=== PATIENT | male | born 1945 | race Native Hawaiian/Other Pacific Islander ===

== ENCOUNTER 2016-06-16 11:36 | Observation (INO) | payer OTHER ==
[~2016-06-16] VITALS: Ht 175.3 cm; Wt 66.9 kg
[2016-06-16 12:29] VITALS: BP 152/93; TEMP 98; Ht 175.3 cm; Wt 66.9 kg
[2016-06-16] MEDS ORDERED: FORTAMET1000 MG PO (12:43)
[2016-06-16] MEDS ORDERED: GLIM4TAB PO (12:44)
[2016-06-16] MEDS ORDERED: METO50TA27 PO (12:45)
[2016-06-16 13:46] LABS: POTASSIUM 3.3 mmol/L (3.6-5.2); SODIUM 132 mmol/L (136-145)
[2016-06-16 13:57] LABS: PLATELET COUNT 228 K/uL (142-355)
[2016-06-16 16:00] VITALS: BP 161/84; TEMP 97.7
[2016-06-16 20:00] VITALS: BP 169/88; TEMP 98.2
[2016-06-17 00:06] VITALS: BP 146/99; TEMP 98.1
[2016-06-17 05:00] VITALS: BP 166/96; TEMP 98.4
[2016-06-17 05:18] LABS: PLATELET COUNT 222 K/uL (142-355)
[2016-06-17 05:41] LABS: POTASSIUM 3.6 mmol/L (3.6-5.2); SODIUM 138 mmol/L (136-145)
[2016-06-17 12:00] VITALS: BP 149/85; TEMP 98
[2016-06-17 16:00] VITALS: BP 154/76; TEMP 98.1
[2016-06-17 20:00] VITALS: BP 170/88; TEMP 97.9
[2016-06-18] VITALS: BP 141/66; TEMP 98
[2016-06-18 04:00] VITALS: BP 179/96; TEMP 97.7
[2016-06-18 05:22] LABS: PLATELET COUNT 226 K/uL (142-355)
[2016-06-18 05:41] LABS: POTASSIUM 3.8 mmol/L (3.6-5.2); SODIUM 132 mmol/L (136-145)
[2016-06-18 08:00] VITALS: BP 164/89; TEMP 97.8
== END 2016-06-18 16:30 | disposition home or self-care (01) ==
LOC: MED/SURG 11:36
PROVIDERS: Emergency Medicine; ADMIT Nurse Practitioner
DX: E86.0 Dehydration (principal); R00.0 Tachycardia, unspecified; R53.1 Weakness; E11.9 Type 2 diabetes mellitus without complications; K59.09 Other constipation; E83.42 Hypomagnesemia
CPT/HCPCS: 36415; 80053; 82150; 82550; 82948; 83690; 83735; 84484; 85027; 87040; 87804; 93005; 96365; 96366; 96367; 96372; 96374; 96375; 99220; G0378; G0379; J1815; J3475; J3490; Q9963

== ENCOUNTER 2016-06-23 12:24 | Outpatient (CLI) | payer OTHER ==
[~2016-06-23 12:24] MED LIST: FORTAMET1000 MG PO; GLIM4TAB PO; METO50TA27 PO
== END 2016-06-23 21:05 | disposition home or self-care (01) ==
LOC: US 12:24
DX: R42 Dizziness and giddiness (principal)

== ENCOUNTER 2018-02-15 10:54 | Emergency (ER) | payer OTHER ==
[~2018-02-15] VITALS: Ht 175.3 cm; Wt 72.6 kg
[2018-02-15 13:38] VITALS: BP 138/84; TEMP 98
== END 2018-02-15 13:38 | disposition home or self-care (01) ==
LOC: ED 10:54
DX: S90.31XA Contusion of right foot, initial encounter (principal); V09.09XA Pedestrian injured in nontraffic accident involving other motor vehicles, initial encounter; Y92.89 Other specified places as the place of occurrence of the external cause
CPT/HCPCS: 96372; 99283; J1885

== ENCOUNTER 2018-06-25 11:22 | Outpatient (CLI) | payer OTHER | END 2018-06-25 20:32 | disposition home or self-care (01) | LOC: RAD 11:22 | DX: R05 Cough (principal) ==

== ENCOUNTER 2019-05-05 11:00 | Emergency (ER) | payer OTHER ==
[~2019-05-05] VITALS: Ht 175.3 cm; Wt 79.8 kg
[2019-05-05 11:09] VITALS: TEMP 98.1
[2019-05-05 11:40] VITALS: BP 156/88
== END 2019-05-05 11:41 | disposition home or self-care (01) ==
LOC: ED 11:00
DX: S16.1XXA Strain of muscle, fascia and tendon at neck level, initial encounter (principal); M47.812 Spondylosis without myelopathy or radiculopathy, cervical region
CPT/HCPCS: 96372; 99283; J1885; J2360

== ENCOUNTER 2019-10-05 14:23 | Emergency (ER) | payer OTHER ==
[~2019-10-05] VITALS: Ht 175.3 cm; Wt 75.8 kg
[2019-10-05 15:06] LABS: PLATELET COUNT 180 K/uL (142-355)
[2019-10-05 15:31] LABS: POTASSIUM 4.5 mmol/L (3.6-5.2)
[2019-10-05 15:59] VITALS: BP 124/75; TEMP 98
== END 2019-10-05 16:00 | disposition home or self-care (01) ==
LOC: ED 14:23
PROVIDERS: Emergency Medicine Emergency Medical Services
DX: R11.10 Vomiting, unspecified (principal); R42 Dizziness and giddiness; M79.10 Myalgia, unspecified site; M54.89 Other dorsalgia; R51 Headache
CPT/HCPCS: 80053; 81000; 82550; 83690; 85027; 96360; 96375; 99284; J2405

== ENCOUNTER 2019-10-07 18:44 | Emergency (ER) | payer OTHER ==
[~2019-10-07] VITALS: Ht 175.3 cm; Wt 75.8 kg
[2019-10-07 19:01] VITALS: BP 112/64; TEMP 98.7
== END 2019-10-07 20:24 | disposition home or self-care (01) ==
LOC: ED 18:44
DX: Z53.21 Procedure and treatment not carried out due to patient leaving prior to being seen by health care provider (principal)
CPT/HCPCS: 99281

== ENCOUNTER 2020-03-25 11:30 | Outpatient (CLI) | payer OTHER | END 2020-03-25 19:57 | disposition home or self-care (01) | LOC: RAD 11:30 | PROVIDERS: ATTEND Nurse Practitioner | DX: Z01.818 Encounter for other preprocedural examination (principal) ==

== ENCOUNTER 2021-03-13 12:49 | Emergency (ER) | payer OTHER ==
[~2021-03-13] VITALS: Ht 175.3 cm; Wt 73.5 kg
[2021-03-13 13:47] LABS: PLATELET COUNT 297 K/uL (142-355)
[2021-03-13 13:52] LABS: POTASSIUM 3.9 mmol/L (3.6-5.2)
[2021-03-13 16:29] VITALS: BP 140/63; TEMP 97.3
== END 2021-03-13 16:24 | disposition home or self-care (01) ==
LOC: ED 12:52
PROVIDERS: Family Medicine
DX: R07.89 Other chest pain (principal); R10.13 Epigastric pain; J32.8 Other chronic sinusitis; R51.9 Headache, unspecified; W18.39XA Other fall on same level, initial encounter; Y92.098 Other place in other non-institutional residence as the place of occurrence of the external cause
CPT/HCPCS: 36415; 80053; 81000; 82150; 82550; 83690; 84484; 85007; 85027; 85379; 85610; 85730; 93005; 96374; 99284; J2405

== ENCOUNTER 2021-05-10 16:15 | Outpatient (CLI) | payer OTHER ==
[2021-05-10 17:08] LABS: POTASSIUM 4.1 mmol/L (3.6-5.2)
== END 2021-05-10 19:06 | disposition home or self-care (01) ==
LOC: LABW 16:15
PROVIDERS: ATTEND Family Medicine
DX: E11.9 Type 2 diabetes mellitus without complications (principal)
CPT/HCPCS: 36415; 80053; 83036

== ENCOUNTER 2021-05-31 13:04 | Emergency (ER) | payer OTHER ==
[~2021-05-31] VITALS: Ht 175.3 cm; Wt 77.1 kg
[2021-05-31 13:10] VITALS: BP 137/93; TEMP 97.6
[2021-05-31 14:23] LABS: PLATELET COUNT 279 K/uL (142-355)
[2021-05-31 14:29] LABS: POTASSIUM 4.1 mmol/L (3.6-5.2)
[2021-05-31 14:48] LABS: PARTIAL THROMBOPLASTIN TIME 26.5 SECONDS (24.5-33.6)
== END 2021-05-31 14:14 | disposition still patient (30) ==
LOC: ED 13:04
PROVIDERS: Hospitalist
DX: F41.1 Generalized anxiety disorder (principal); F41.0 Panic disorder [episodic paroxysmal anxiety]; E11.9 Type 2 diabetes mellitus without complications; Z79.84 Long term (current) use of oral hypoglycemic drugs; Z51.81 Encounter for therapeutic drug level monitoring
CPT/HCPCS: 80053; 80307; 80320; 81000; 82550; 83880; 84484; 85027; 85610; 85730; 93005; 99283

== ENCOUNTER 2022-02-27 14:27 | Emergency (ER) | payer OTHER ==
[~2022-02-27] VITALS: Ht 175.3 cm; Wt 77.1 kg
[2022-02-27 14:35] VITALS: BP 121/94; TEMP 98
== END 2022-02-27 14:49 | disposition home or self-care (01) ==
LOC: ED 14:27
DX: Z53.21 Procedure and treatment not carried out due to patient leaving prior to being seen by health care provider (principal)
CPT/HCPCS: 99281

== ENCOUNTER 2022-05-01 14:43 | Emergency (ER) | payer OTHER ==
[~2022-05-01] VITALS: Ht 175.3 cm; Wt 74.8 kg
[2022-05-01 14:50] VITALS: BP 124/94; TEMP 97.4
== END 2022-05-01 15:07 | disposition home or self-care (01) ==
LOC: ED 14:43
DX: J33.9 Nasal polyp, unspecified (principal); J32.8 Other chronic sinusitis
CPT/HCPCS: 99282

== ENCOUNTER 2022-05-21 14:35 | Emergency (ER) | payer OTHER ==
[~2022-05-21] VITALS: Ht 175.3 cm; Wt 74.8 kg
[2022-05-21 15:30] LABS: PLATELET COUNT 328 K/uL (142-355)
[2022-05-21 15:31] LABS: POTASSIUM 3.7 mmol/L (3.6-5.2)
[2022-05-21 15:45] LABS: PARTIAL THROMBOPLASTIN TIME 25.9 SECONDS (24.5-33.6)
[2022-05-21 17:30] VITALS: BP 117/62; TEMP 98.2
== END 2022-05-21 17:30 | disposition left against medical advice (07) ==
LOC: ED 14:35
PROVIDERS: Family Medicine
DX: R07.89 Other chest pain (principal); I47.1 Supraventricular tachycardia; E11.9 Type 2 diabetes mellitus without complications; N18.9 Chronic kidney disease, unspecified; R06.09 Other forms of dyspnea; Z53.29 Procedure and treatment not carried out because of patient's decision for other reasons; W01.0XXA Fall on same level from slipping, tripping and stumbling without subsequent striking against object, initial encounter; Y92.098 Other place in other non-institutional residence as the place of occurrence of the external cause
CPT/HCPCS: 36415; 80053; 82550; 84484; 85027; 85379; 85610; 85730; 93005; 96365; 96366; 96375; 99285; J3490

== ENCOUNTER 2022-06-06 09:31 | Emergency (ER) | payer OTHER ==
[~2022-06-06] VITALS: Ht 175.3 cm; Wt 72.6 kg
[2022-06-06 09:55] VITALS: TEMP 97
[2022-06-06 10:00] LABS: PLATELET COUNT 484 K/uL (142-355)
[2022-06-06 10:09] LABS: POTASSIUM 5.3 mmol/L (3.6-5.2)
[2022-06-06 12:30] VITALS: BP 120/76
== END 2022-06-06 13:15 | disposition short-term general hospital (02) ==
LOC: ED 09:31
PROVIDERS: Emergency Medicine Emergency Medical Services
DX: I21.4 Non-ST elevation (NSTEMI) myocardial infarction (principal); I49.8 Other specified cardiac arrhythmias; F13.239 Sedative, hypnotic or anxiolytic dependence with withdrawal, unspecified; R29.6 Repeated falls; I10 Essential (primary) hypertension; I25.810 Atherosclerosis of coronary artery bypass graft(s) without angina pectoris; Z79.84 Long term (current) use of oral hypoglycemic drugs; Z51.81 Encounter for therapeutic drug level monitoring
CPT/HCPCS: 36415; 36600; 80053; 80307; 81002; 82805; 83735; 83880; 84484; 85027; 85379; 85610; 93005; 96361; 96365; 96372; 96375; 99285; J1650; J2060; J3475; J3490

== ENCOUNTER 2022-08-30 08:49 | Outpatient (CLI) | payer OTHER ==
[~2022-08-30] VITALS: Ht 175.3 cm; Wt 66.7 kg
== END 2022-08-30 21:00 ==
LOC: NM 08:49
PROVIDERS: ATTEND Nurse Practitioner
DX: I10 Essential (primary) hypertension (principal); R07.89 Other chest pain; I25.10 Atherosclerotic heart disease of native coronary artery without angina pectoris; R00.2 Palpitations
CPT/HCPCS: A9500; J2785